=== PATIENT | female | born 1970 | race Caucasian/White ===

== ENCOUNTER 2018-03-09 19:51 | Emergency (ER) | payer MEDICAID ==
[2018-03-09] MEDS: SOD CHLORIDE 0.9% 1,000 ML IV (23:14)
[2018-03-09] MEDS: ONDANSETRON 4 MG INJ IV (23:15)
[2018-03-09] MEDS: morphine 4 MG/ML VIAL IV (23:17)
[2018-03-09 23:23] LABS: ADD MAN DIFF? NO
[2018-03-09 23:30] LABS: WHITE BLOOD COUNT 6.7 10^3/ul (4.8-10.8)
[2018-03-09 23:30] LABS: BASOPHILS % 0.3 % (0.0-2.0); EOSINOPHILS # 0.1 10^3/ul (0.0-0.5); EOSINOPHILS % 1.5 % (0.0-7.0); HEMATOCRIT 50.2 % (37.0-47.0); HEMOGLOBIN 15.8 g/dl (12.0-16.0); LYMPHOCYTES % 29.8 % (15.0-51.0); MEAN CORPUSCULAR HEMOGLOBIN 25.6 pg (29.0-33.0); MEAN CORPUSCULAR HGB CONC 31.5 g/dl (32.0-37.0); MEAN CORPUSCULAR VOLUME 81.4 fl (82.0-101.0); MEAN PLATELET VOLUME 12.1 fl (7.4-10.4); MONOCYTE # 0.6 10^3/ul (0.3-0.9); MONOCYTES % 8.9 % (0.0-11.0); NEUTROPHILS % 59.3 % (39.0-77.0); PLATELET COUNT 233 10^3/UL (140-415); RED BLOOD COUNT 6.17 10^6/ul (4.20-5.40); RED CELL DISTRIBUTION WIDTH 13.4 % (11.5-14.5)
[2018-03-09 23:43] LABS: UR BACTERIA MODERATE /HPF (NONE SEEN); UR MUCUS FEW /HPF (NONE SEEN); UR RBC 6 /HPF (0-5); UR SQUAMOUS EPITHELIAL CELL FEW /HPF (FEW); UR WBC 117 /HPF (0-5)
[2018-03-09 23:51] LABS: ALANINE AMINOTRANSFERASE 157 IU/L (13-69); ALBUMIN/GLOBULIN RATIO 1.02; ALKALINE PHOSPHATASE 139 IU/L (42-121); ANION GAP 15 (8-16); ASPARTATE AMINO TRANSFERASE 84 IU/L (15-46); BILIRUBIN,INDIRECT 0.6 mg/dl (0-1.1); BILIRUBIN,TOTAL 0.6 mg/dl (0.2-1.3); BLOOD UREA NITROGEN 15 mg/dl (7-20); CALCIUM 9.8 mg/dl (8.4-10.2); CARBON DIOXIDE 28 mmol/L (21-31); CHLORIDE 105 mmol/L (97-110); CREATININE 0.83 mg/dl (0.44-1.00); GLUCOSE 94 mg/dl (70-220); LIPASE 142 U/L (23-300); POTASSIUM 3.8 mmol/L (3.5-5.1); SODIUM 144 mmol/L (135-144); TOTAL PROTEIN 7.9 g/dl (6.1-8.1)
[2018-03-10 00:48] LABS: ADD UMIC YES; UR ASCORBIC ACID NEGATIVE (NEGATIVE); UR BILIRUBIN (Dip) NEGATIVE (NEGATIVE); UR BLOOD (Dip) 3+ mg/dL (NEGATIVE); UR CLARITY SLIGHTLY CLOUDY (CLEAR); UR COLOR YELLOW (YELLOW); UR GLUCOSE (Dip) NEGATIVE (NEGATIVE); UR KETONES (Dip) NEGATIVE (NEGATIVE); UR LEUKOCYTE ESTERASE (Dip) 1+ Leu/ul (NEGATIVE); UR NITRITE (Dip) POSITIVE (NEGATIVE); UR SPECIFIC GRAVITY (Dip) 1.021 (1.003-1.030); UR TOTAL PROTEIN (Dip) 2+ mg/dl (NEGATIVE); UR UROBILINOGEN (Dip) NEGATIVE (NEGATIVE)
[2018-03-10] MEDS: CEFTRIAXONE 1 GM/50 ML (PMX) 50 ML IVPB (01:14)
== END 2018-03-10 02:00 | disposition home or self-care (01) ==
LOC: FTE 03-10 02:00
DX: A08.4 Viral intestinal infection, unspecified (principal); N30.01 Acute cystitis with hematuria
CPT/HCPCS: 36415; 74176; 80053; 81001; 81025; 83690; 85025; 96361; 96365; 96375; 99285-25

== ENCOUNTER 2018-07-31 17:12 | Inpatient (IN) | payer MEDICAID ==
[2018-07-31 20:10] LABS: ADD MAN DIFF? NO
[2018-07-31] MEDS: SOD CHLORIDE 0.9% 1,000 ML IV ×2 (20:13→23:43)
[2018-07-31] MEDS: morphine 4 MG/ML VIAL IV (20:13)
[2018-07-31] MEDS: ONDANSETRON 4 MG INJ IV (20:13)
[2018-07-31 20:15] LABS: ADD UMIC YES; INR 0.89; PROTIME 12.2 Sec (11.9-14.9); UR ASCORBIC ACID NEGATIVE (NEGATIVE); UR BILIRUBIN (Dip) NEGATIVE (NEGATIVE); UR BLOOD (Dip) 2+ mg/dL (NEGATIVE); UR CLARITY CLEAR (CLEAR); UR COLOR YELLOW (YELLOW); UR GLUCOSE (Dip) NEGATIVE (NEGATIVE); UR KETONES (Dip) NEGATIVE (NEGATIVE); UR LEUKOCYTE ESTERASE (Dip) NEGATIVE Leu/ul (NEGATIVE); UR NITRITE (Dip) NEGATIVE (NEGATIVE); UR RBC 4 /HPF (0-5); UR SPECIFIC GRAVITY (Dip) 1.018 (1.003-1.030); UR SQUAMOUS EPITHELIAL CELL FEW /HPF (FEW); UR TOTAL PROTEIN (Dip) 2+ mg/dl (NEGATIVE); UR UROBILINOGEN (Dip) NEGATIVE (NEGATIVE); UR WBC 3 /HPF (0-5)
[2018-07-31 20:17] LABS: ALANINE AMINOTRANSFERASE 84 IU/L (13-69); ALBUMIN 4.4 g/dl (3.3-4.9); ALBUMIN/GLOBULIN RATIO 1.15; ALKALINE PHOSPHATASE 144 IU/L (42-121); ANION GAP 12 (5-13); ASPARTATE AMINO TRANSFERASE 54 IU/L (15-46); BILIRUBIN,INDIRECT 0.1 mg/dl (0-1.1); BILIRUBIN,TOTAL 0.1 mg/dl (0.2-1.3); BLOOD UREA NITROGEN 15 mg/dl (7-20); CALCIUM 9.4 mg/dl (8.4-10.2); CARBON DIOXIDE 25 mmol/L (21-31); CHLORIDE 108 mmol/L (97-110); CREATININE 0.78 mg/dl (0.44-1.00); Estimated GFR > 60 mL/min (>60); GLUCOSE 88 mg/dl (70-220); LIPASE 146 U/L (23-300); POTASSIUM 3.1 mmol/L (3.5-5.1); SODIUM 145 mmol/L (135-144); TOTAL PROTEIN 8.2 g/dl (6.1-8.1)
[2018-07-31 20:28] LABS: BASOPHILS % 0.4 % (0.0-2.0); EOSINOPHILS # 0.1 10^3/ul (0.0-0.5); EOSINOPHILS % 1.2 % (0.0-7.0); HEMATOCRIT 47.8 % (37.0-47.0); HEMOGLOBIN 14.8 g/dl (12.0-16.0); LYMPHOCYTES % 20.6 % (15.0-51.0); MEAN CORPUSCULAR HEMOGLOBIN 25.3 pg (29.0-33.0); MEAN CORPUSCULAR VOLUME 81.8 fl (82.0-101.0); MEAN PLATELET VOLUME 12.2 fl (7.4-10.4); MONOCYTE # 0.8 10^3/ul (0.3-0.9); MONOCYTES % 8.7 % (0.0-11.0); NEUTROPHIL # 6.7 10^3/ul (1.6-7.5); NEUTROPHILS % 68.7 % (39.0-77.0); PLATELET COUNT 243 10^3/UL (140-415); RED BLOOD COUNT 5.84 10^6/ul (4.20-5.40); RED CELL DISTRIBUTION WIDTH 13.6 % (11.5-14.5)
[2018-07-31 20:28] LABS: WHITE BLOOD COUNT 9.7 10^3/ul (4.8-10.8)
[2018-07-31] MEDS: POTASSIUM CHLORIDE (SR) 20 MEQ TAB PO (22:39)
[2018-07-31] MEDS ORDERED: ACETAMINOPHEN 325 MG TAB PO (23:30)
[2018-07-31] MEDS ORDERED: ONDANSETRON 4 MG INJ IV (23:30)
[2018-08-01] MEDS ORDERED: DOCUSATE SODIUM 100 MG CAP PO
[2018-08-01] MEDS ORDERED: BISACODYL (EC) 5 MG TAB PO
[2018-08-01] MEDS ORDERED: NACL 0.9% 3 ML SYG IV
[2018-08-01] MEDS: SUCRALFATE 1 GM TAB PO ×5 (00:44→23:03)
[2018-08-01] MEDS: 1/2 NS + KCL 20 MEQ 1,000 ML IV ×4 (01:20→23:03)
[2018-08-01] MEDS: PANTOPRAZOLE 40 MG INJ IV ×2 (06:00→17:13)
[2018-08-01 06:12] LABS: ADD MAN DIFF? NO
[2018-08-01 06:16] LABS: WHITE BLOOD COUNT 6.9 10^3/ul (4.8-10.8)
[2018-08-01 06:16] LABS: BASOPHILS % 0.4 % (0.0-2.0); EOSINOPHILS # 0.2 10^3/ul (0.0-0.5); EOSINOPHILS % 2.2 % (0.0-7.0); HEMATOCRIT 41.6 % (37.0-47.0); HEMOGLOBIN 13.2 g/dl (12.0-16.0); LYMPHOCYTES % 29.6 % (15.0-51.0); MEAN CORPUSCULAR HGB CONC 31.7 g/dl (32.0-37.0); MEAN CORPUSCULAR VOLUME 81.9 fl (82.0-101.0); MEAN PLATELET VOLUME 12.2 fl (7.4-10.4); MONOCYTE # 0.7 10^3/ul (0.3-0.9); NEUTROPHILS % 57.7 % (39.0-77.0); PLATELET COUNT 204 10^3/UL (140-415); RED BLOOD COUNT 5.08 10^6/ul (4.20-5.40); RED CELL DISTRIBUTION WIDTH 13.7 % (11.5-14.5)
[2018-08-01 06:26] LABS: HAAIG REFLEX REFLEX FILED
[2018-08-01 06:35] LABS: HEMOGLOBIN A1C 5.6 % (0-5.9)
[2018-08-01 07:18] LABS: ALANINE AMINOTRANSFERASE 70 IU/L (13-69); ALBUMIN 3.5 g/dl (3.3-4.9); ALBUMIN/GLOBULIN RATIO 1.06; ALKALINE PHOSPHATASE 113 IU/L (42-121); ANION GAP 10 (5-13); ASPARTATE AMINO TRANSFERASE 33 IU/L (15-46); BILIRUBIN,INDIRECT 0.3 mg/dl (0-1.1); BILIRUBIN,TOTAL 0.3 mg/dl (0.2-1.3); BLOOD UREA NITROGEN 13 mg/dl (7-20); CALCIUM 8.5 mg/dl (8.4-10.2); CARBON DIOXIDE 24 mmol/L (21-31); CHLORIDE 109 mmol/L (97-110); CHOL/HDL RATIO 4.9 RATIO; CHOLESTEROL 153 mg/dl (100-200); CREATININE 0.69 mg/dl (0.44-1.00); Estimated GFR > 60 mL/min (>60); GLUCOSE 92 mg/dl (70-220); HDL CHOLESTEROL 31 mg/dl (37-92); LDL CHOLESTEROL,CALCULATED 101 mg/dl; MAGNESIUM 1.8 mg/dl (1.7-2.5); POTASSIUM 3.6 mmol/L (3.5-5.1); SODIUM 143 mmol/L (135-144); TOTAL PROTEIN 6.8 g/dl (6.1-8.1); TRIGLYCERIDES 103 mg/dl (0-149)
[2018-08-01 07:37] LABS: ALPHA FETOPROTEIN 3.49 IU/L (0.00-7.21)
[2018-08-01 07:49] LABS: HEPATITIS B SURFACE ANTIGEN NEGATIVE (NEGATIVE)
[2018-08-01 07:55] LABS: ERYTHROCYTE SEDIMENTATION RATE 13 mm/Hr (0-30)
[2018-08-01 08:07] LABS: HEPATITIS B SURFACE ANTIBODY NEGATIVE (NEGATIVE)
[2018-08-01 08:07] LABS: HEPATITIS B CORE ANTIBODY NEGATIVE (NEGATIVE); HEPATITIS C VIRAL ANTIBODY NEGATIVE (NEGATIVE)
[2018-08-01] MEDS ORDERED: hydrALAzine 20 MG INJ IV (10:30)
[2018-08-01] MEDS: POTASSIUM CHLORIDE (SR) 20 MEQ TAB PO (11:19)
[2018-08-01] MEDS: AMLODIPINE 2.5 MG TAB PO (11:20)
[2018-08-01] MEDS: morphine 2 MG INJ IV (15:03)
[2018-08-01] MEDS: METOCLOPRAMIDE 10 MG INJ IV (17:13)
[2018-08-01] MEDS ORDERED: METOCLOPRAMIDE 10 MG INJ IV (18:30)
[2018-08-01] MEDS ORDERED: ONDANSETRON 4 MG INJ IV (18:30)
[2018-08-01] MEDS ORDERED: MEPERIDINE 25 MG INJ IV (18:30)
[2018-08-01] MEDS ORDERED: FENTAnyl 50 MCG/ML VIAL IV (18:30)
[2018-08-01] MEDS ORDERED: DIPHENHYDRAMINE 50 MG INJ IV (18:30)
[2018-08-01] MEDS: ACETAMINOPHEN 325 MG TAB PO (18:59)
[2018-08-02] MEDS: morphine 2 MG INJ IV (00:34)
[2018-08-02] MEDS: SUCRALFATE 1 GM TAB PO ×4 (05:22→23:28)
[2018-08-02 05:27] LABS: ADD MAN DIFF? NO
[2018-08-02 05:36] LABS: BASOPHILS % 0.7 % (0.0-2.0); EOSINOPHILS # 0.1 10^3/ul (0.0-0.5); EOSINOPHILS % 2.2 % (0.0-7.0); LYMPHOCYTES # 1.7 10^3/ul (0.8-2.9); MEAN CORPUSCULAR HEMOGLOBIN 25.8 pg (29.0-33.0); MEAN CORPUSCULAR VOLUME 83.3 fl (82.0-101.0); MEAN PLATELET VOLUME 12.2 fl (7.4-10.4); MONOCYTE # 0.5 10^3/ul (0.3-0.9); MONOCYTES % 9.3 % (0.0-11.0); NEUTROPHILS % 55.4 % (39.0-77.0); PLATELET COUNT 193 10^3/UL (140-415); RED BLOOD COUNT 5.04 10^6/ul (4.20-5.40); RED CELL DISTRIBUTION WIDTH 13.7 % (11.5-14.5)
[2018-08-02 05:36] LABS: WHITE BLOOD COUNT 5.4 10^3/ul (4.8-10.8)
[2018-08-02 05:56] LABS: ALANINE AMINOTRANSFERASE 66 IU/L (13-69); ALBUMIN 3.4 g/dl (3.3-4.9); ALBUMIN/GLOBULIN RATIO 0.97; ALKALINE PHOSPHATASE 108 IU/L (42-121); ANION GAP 7 (5-13); ASPARTATE AMINO TRANSFERASE 41 IU/L (15-46); BILIRUBIN,INDIRECT 0.4 mg/dl (0-1.1); BILIRUBIN,TOTAL 0.4 mg/dl (0.2-1.3); BLOOD UREA NITROGEN 9 mg/dl (7-20); CARBON DIOXIDE 24 mmol/L (21-31); CHLORIDE 110 mmol/L (97-110); CREATININE 0.62 mg/dl (0.44-1.00); Estimated GFR > 60 mL/min (>60); GLUCOSE 92 mg/dl (70-220); POTASSIUM 3.8 mmol/L (3.5-5.1); SODIUM 141 mmol/L (135-144); TOTAL PROTEIN 6.9 g/dl (6.1-8.1)
[2018-08-02] MEDS: SOD CHLORIDE 0.9% 1,000 ML IV ×2 (05:57→23:29)
[2018-08-02] MEDS: PANTOPRAZOLE 40 MG INJ IV ×2 (05:57→18:53)
[2018-08-02 06:04] LABS: MAGNESIUM 1.8 mg/dl (1.7-2.5)
[2018-08-02] MEDS: AMLODIPINE 2.5 MG TAB PO (09:00)
[2018-08-02] MEDS: METOCLOPRAMIDE 10 MG TAB PO ×2 (16:11→22:30)
[2018-08-02 17:05] LABS: ALPHA 1 ANTITRYPSIN 124 mg/dL (83-199)
[2018-08-02] MEDS: DEXAMETHASONE 1 MG TAB PO (23:28)
[2018-08-03 01:11] LABS: ADD UMIC YES; UR ASCORBIC ACID NEGATIVE (NEGATIVE); UR BILIRUBIN (Dip) NEGATIVE (NEGATIVE); UR BLOOD (Dip) 2+ mg/dL (NEGATIVE); UR CLARITY CLEAR (CLEAR); UR COLOR YELLOW (YELLOW); UR GLUCOSE (Dip) NEGATIVE (NEGATIVE); UR KETONES (Dip) 1+ mg/dL (NEGATIVE); UR LEUKOCYTE ESTERASE (Dip) NEGATIVE Leu/ul (NEGATIVE); UR NITRITE (Dip) NEGATIVE (NEGATIVE); UR RBC 1 /HPF (0-5); UR SQUAMOUS EPITHELIAL CELL FEW /HPF (FEW); UR TOTAL PROTEIN (Dip) 1+ mg/dl (NEGATIVE); UR UROBILINOGEN (Dip) NEGATIVE (NEGATIVE); UR WBC 3 /HPF (0-5)
[2018-08-03 05:09] LABS: ADD MAN DIFF? NO
[2018-08-03 05:18] LABS: WHITE BLOOD COUNT 6.7 10^3/ul (4.8-10.8)
[2018-08-03 05:18] LABS: BASOPHILS % 0.6 % (0.0-2.0); EOSINOPHILS % 0.3 % (0.0-7.0); HEMATOCRIT 45.1 % (37.0-47.0); HEMOGLOBIN 14.1 g/dl (12.0-16.0); LYMPHOCYTES # 0.9 10^3/ul (0.8-2.9); LYMPHOCYTES % 13.5 % (15.0-51.0); MEAN CORPUSCULAR HEMOGLOBIN 25.5 pg (29.0-33.0); MEAN CORPUSCULAR HGB CONC 31.3 g/dl (32.0-37.0); MEAN CORPUSCULAR VOLUME 81.4 fl (82.0-101.0); MEAN PLATELET VOLUME 12.3 fl (7.4-10.4); MONOCYTE # 0.3 10^3/ul (0.3-0.9); MONOCYTES % 4.9 % (0.0-11.0); NEUTROPHIL # 5.4 10^3/ul (1.6-7.5); NEUTROPHILS % 80.4 % (39.0-77.0); PLATELET COUNT 230 10^3/UL (140-415); RED BLOOD COUNT 5.54 10^6/ul (4.20-5.40); RED CELL DISTRIBUTION WIDTH 13.2 % (11.5-14.5)
[2018-08-03 05:45] LABS: ALANINE AMINOTRANSFERASE 66 IU/L (13-69); ALBUMIN/GLOBULIN RATIO 1.11; ALKALINE PHOSPHATASE 121 IU/L (42-121); ANION GAP 13 (5-13); ASPARTATE AMINO TRANSFERASE 43 IU/L (15-46); BILIRUBIN,INDIRECT 0.4 mg/dl (0-1.1); BILIRUBIN,TOTAL 0.4 mg/dl (0.2-1.3); BLOOD UREA NITROGEN 12 mg/dl (7-20); CALCIUM 9.5 mg/dl (8.4-10.2); CARBON DIOXIDE 22 mmol/L (21-31); CHLORIDE 109 mmol/L (97-110); CREATININE 0.63 mg/dl (0.44-1.00); Estimated GFR > 60 mL/min (>60); GLUCOSE 111 mg/dl (70-220); POTASSIUM 3.9 mmol/L (3.5-5.1); SODIUM 144 mmol/L (135-144); TOTAL PROTEIN 7.6 g/dl (6.1-8.1)
[2018-08-03 05:49] LABS: PHOSPHORUS 3.3 mg/dl (2.5-4.9)
[2018-08-03 05:49] LABS: MAGNESIUM 1.9 mg/dl (1.7-2.5)
[2018-08-03] MEDS: SUCRALFATE 1 GM TAB PO ×4 (06:33→23:44)
[2018-08-03] MEDS: PANTOPRAZOLE 40 MG INJ IV ×2 (06:33→18:18)
[2018-08-03] MEDS: METOCLOPRAMIDE 10 MG TAB PO ×3 (06:33→23:44)
[2018-08-03] MEDS: AMLODIPINE 2.5 MG TAB PO (09:40)
[2018-08-03] MEDS: SOD CHLORIDE 0.9% 1,000 ML IV (12:58)
[2018-08-03] MEDS: morphine 2 MG INJ IV (12:59)
[2018-08-03 14:57] LABS: ALDOSTERONE 4 ng/dL
[2018-08-03] MEDS: INDOMETHACIN 50 MG SUPP PR (16:00)
[2018-08-03] MEDS: LIDOCAINE 2% (SDV) 5 ML INJ (19:52)
[2018-08-03] MEDS: PROPOFOL 40 ML (19:52)
[2018-08-04] MEDS: SOD CHLORIDE 0.9% 1,000 ML IV ×3 (01:40→23:20)
[2018-08-04 05:38] LABS: ADD MAN DIFF? NO
[2018-08-04 05:47] LABS: BASOPHILS % 0.6 % (0.0-2.0); EOSINOPHILS # 0.1 10^3/ul (0.0-0.5); EOSINOPHILS % 1.5 % (0.0-7.0); HEMATOCRIT 41.2 % (37.0-47.0); HEMOGLOBIN 13.3 g/dl (12.0-16.0); LYMPHOCYTES # 2.2 10^3/ul (0.8-2.9); LYMPHOCYTES % 33.7 % (15.0-51.0); MEAN CORPUSCULAR HEMOGLOBIN 26.1 pg (29.0-33.0); MEAN CORPUSCULAR HGB CONC 32.3 g/dl (32.0-37.0); MEAN CORPUSCULAR VOLUME 80.8 fl (82.0-101.0); MEAN PLATELET VOLUME 12.1 fl (7.4-10.4); MONOCYTE # 0.5 10^3/ul (0.3-0.9); MONOCYTES % 7.7 % (0.0-11.0); NEUTROPHIL # 3.6 10^3/ul (1.6-7.5); NEUTROPHILS % 56.3 % (39.0-77.0); PLATELET COUNT 210 10^3/UL (140-415); RED CELL DISTRIBUTION WIDTH 13.6 % (11.5-14.5)
[2018-08-04 05:47] LABS: WHITE BLOOD COUNT 6.5 10^3/ul (4.8-10.8)
[2018-08-04] MEDS: SUCRALFATE 1 GM TAB PO ×3 (06:02→17:25)
[2018-08-04] MEDS: METOCLOPRAMIDE 10 MG TAB PO ×3 (06:02→21:13)
[2018-08-04] MEDS: PANTOPRAZOLE 40 MG INJ IV ×2 (06:02→17:22)
[2018-08-04 06:11] LABS: MAGNESIUM 1.8 mg/dl (1.7-2.5)
[2018-08-04 06:11] LABS: PHOSPHORUS 2.9 mg/dl (2.5-4.9)
[2018-08-04 06:32] LABS: ALANINE AMINOTRANSFERASE 71 IU/L (13-69); ALBUMIN 3.5 g/dl (3.3-4.9); ALBUMIN/GLOBULIN RATIO 1.02; ALKALINE PHOSPHATASE 107 IU/L (42-121); ANION GAP 11 (5-13); ASPARTATE AMINO TRANSFERASE 41 IU/L (15-46); BILIRUBIN,INDIRECT 0.4 mg/dl (0-1.1); BILIRUBIN,TOTAL 0.4 mg/dl (0.2-1.3); BLOOD UREA NITROGEN 10 mg/dl (7-20); CALCIUM 8.9 mg/dl (8.4-10.2); CARBON DIOXIDE 24 mmol/L (21-31); CHLORIDE 109 mmol/L (97-110); CREATININE 0.68 mg/dl (0.44-1.00); Estimated GFR > 60 mL/min (>60); GLUCOSE 92 mg/dl (70-220); POTASSIUM 3.3 mmol/L (3.5-5.1); SODIUM 144 mmol/L (135-144); TOTAL PROTEIN 6.9 g/dl (6.1-8.1)
[2018-08-04] MEDS: AMLODIPINE 2.5 MG TAB PO (08:32)
[2018-08-04] MEDS: morphine 2 MG INJ IV ×2 (14:40→23:20)
[2018-08-04] MEDS: POTASSIUM CHLORIDE 100 ML IVPB ×2 (14:41→16:30)
[2018-08-04] MEDS ORDERED: SUCCINYLCHOLINE CHLORIDE 100 MG/5 ML SYG IV (17:40)
[2018-08-04] MEDS ORDERED: PROPOFOL 20 ML ×2 (17:40→18:10)
[2018-08-04] MEDS ORDERED: IOHEXOL 300MG/ML 30 ML BTL (17:52)
[2018-08-04] MEDS ORDERED: DIPHENHYDRAMINE 50 MG INJ IV (18:00)
[2018-08-04] MEDS ORDERED: MEPERIDINE 25 MG INJ IV (18:00)
[2018-08-04] MEDS ORDERED: LABETALOL HCL 20MG INJ IV (18:00)
[2018-08-04] MEDS ORDERED: hydrALAzine 20 MG INJ IV (18:00)
[2018-08-04] MEDS ORDERED: HYDROmorphONE 1 MG/5 ML IV SYRINGE IV (18:00)
[2018-08-04] MEDS ORDERED: METOCLOPRAMIDE 10 MG INJ (18:09)
[2018-08-04] MEDS ORDERED: FENTAnyl 50 MCG/ML VIAL (18:09)
[2018-08-04] MEDS ORDERED: ONDANSETRON 4 MG INJ (18:09)
[2018-08-04] MEDS: HYDROmorphONE 1 MG/5 ML IV SYRINGE IV ×2 (18:50→18:57)
[2018-08-04] MEDS: ONDANSETRON 4 MG INJ IV (18:51)
[2018-08-04] MEDS: POTASSIUM CHLORIDE 20 MEQ POWDER FOR ORAL SOLN PO (21:14)
[2018-08-05] MEDS: SUCRALFATE 1 GM TAB PO ×4 (00:49→17:53)
[2018-08-05] MEDS: ACETAMINOPHEN 325 MG TAB PO ×3 (00:50→20:56)
[2018-08-05 05:28] LABS: ADD MAN DIFF? NO
[2018-08-05 05:33] LABS: BASOPHILS % 0.3 % (0.0-2.0); EOSINOPHILS # 0.1 10^3/ul (0.0-0.5); EOSINOPHILS % 0.5 % (0.0-7.0); HEMATOCRIT 42.8 % (37.0-47.0); HEMOGLOBIN 13.5 g/dl (12.0-16.0); LYMPHOCYTES # 0.9 10^3/ul (0.8-2.9); LYMPHOCYTES % 8.4 % (15.0-51.0); MEAN CORPUSCULAR HEMOGLOBIN 25.5 pg (29.0-33.0); MEAN CORPUSCULAR HGB CONC 31.5 g/dl (32.0-37.0); MEAN CORPUSCULAR VOLUME 80.8 fl (82.0-101.0); MEAN PLATELET VOLUME 12.5 fl (7.4-10.4); MONOCYTE # 0.6 10^3/ul (0.3-0.9); MONOCYTES % 5.7 % (0.0-11.0); NEUTROPHIL # 9.1 10^3/ul (1.6-7.5); NEUTROPHILS % 84.7 % (39.0-77.0); PLATELET COUNT 243 10^3/UL (140-415); RED CELL DISTRIBUTION WIDTH 13.4 % (11.5-14.5)
[2018-08-05 05:33] LABS: WHITE BLOOD COUNT 10.8 10^3/ul (4.8-10.8)
[2018-08-05 06:05] LABS: ALANINE AMINOTRANSFERASE 146 IU/L (13-69); ALBUMIN 3.8 g/dl (3.3-4.9); ALBUMIN/GLOBULIN RATIO 1.15; ALKALINE PHOSPHATASE 119 IU/L (42-121); ANION GAP 10 (5-13); ASPARTATE AMINO TRANSFERASE 159 IU/L (15-46); BILIRUBIN,INDIRECT 0.5 mg/dl (0-1.1); BILIRUBIN,TOTAL 0.5 mg/dl (0.2-1.3); BLOOD UREA NITROGEN 9 mg/dl (7-20); CARBON DIOXIDE 26 mmol/L (21-31); CHLORIDE 107 mmol/L (97-110); CREATININE 0.67 mg/dl (0.44-1.00); Estimated GFR > 60 mL/min (>60); GLUCOSE 115 mg/dl (70-220); POTASSIUM 3.8 mmol/L (3.5-5.1); SODIUM 143 mmol/L (135-144); TOTAL PROTEIN 7.1 g/dl (6.1-8.1)
[2018-08-05 06:08] LABS: MAGNESIUM 1.6 mg/dl (1.7-2.5)
[2018-08-05 06:08] LABS: PHOSPHORUS 3.5 mg/dl (2.5-4.9)
[2018-08-05] MEDS: PANTOPRAZOLE 40 MG INJ IV (06:11)
[2018-08-05] MEDS: METOCLOPRAMIDE 10 MG TAB PO ×3 (06:12→20:45)
[2018-08-05 08:37] LABS: RENIN, PLASMA 0.77 ng/mL/h (0.25-5.82)
[2018-08-05] MEDS: ONDANSETRON 4 MG INJ IV (08:38)
[2018-08-05] MEDS: AMLODIPINE 2.5 MG TAB PO (08:39)
[2018-08-05] MEDS: POTASSIUM CHLORIDE 20 MEQ POWDER FOR ORAL SOLN PO ×2 (08:39→20:45)
[2018-08-05] MEDS: SOD CHLORIDE 0.9% 1,000 ML IV (12:20)
[2018-08-05] MEDS: PANTOPRAZOLE (EC) 40 MG TAB PO (17:53)
[2018-08-05 19:32] LABS: RENIN, PLASMA 0.27 ng/mL/h (0.25-5.82)
[2018-08-05] MEDS: MAGNESIUM SULFATE 3 GM in DEXTROSE 5% 100 ML IVPB (20:45)
[2018-08-06] MEDS: ACETAMINOPHEN 325 MG TAB PO (03:43)
[2018-08-06 05:11] LABS: ADD MAN DIFF? NO
[2018-08-06 05:22] LABS: WHITE BLOOD COUNT 5.8 10^3/ul (4.8-10.8)
[2018-08-06 05:22] LABS: BASOPHILS % 0.5 % (0.0-2.0); EOSINOPHILS # 0.1 10^3/ul (0.0-0.5); HEMATOCRIT 41.9 % (37.0-47.0); HEMOGLOBIN 13.4 g/dl (12.0-16.0); LYMPHOCYTES # 0.9 10^3/ul (0.8-2.9); LYMPHOCYTES % 16.2 % (15.0-51.0); MEAN CORPUSCULAR HEMOGLOBIN 25.5 pg (29.0-33.0); MEAN CORPUSCULAR VOLUME 79.8 fl (82.0-101.0); MEAN PLATELET VOLUME 12.2 fl (7.4-10.4); MONOCYTE # 0.4 10^3/ul (0.3-0.9); MONOCYTES % 6.6 % (0.0-11.0); NEUTROPHIL # 4.4 10^3/ul (1.6-7.5); NEUTROPHILS % 75.4 % (39.0-77.0); PLATELET COUNT 202 10^3/UL (140-415); RED BLOOD COUNT 5.25 10^6/ul (4.20-5.40); RED CELL DISTRIBUTION WIDTH 13.6 % (11.5-14.5)
[2018-08-06 05:48] LABS: AMYLASE 55 U/L (11-123)
[2018-08-06 05:48] LABS: LIPASE 394 U/L (23-300)
[2018-08-06 05:51] LABS: ALANINE AMINOTRANSFERASE 351 IU/L (13-69); ALBUMIN 3.5 g/dl (3.3-4.9); ALBUMIN/GLOBULIN RATIO 1.12; ALKALINE PHOSPHATASE 148 IU/L (42-121); ANION GAP 8 (5-13); ASPARTATE AMINO TRANSFERASE 272 IU/L (15-46); BILIRUBIN,INDIRECT 0.4 mg/dl (0-1.1); BILIRUBIN,TOTAL 0.4 mg/dl (0.2-1.3); BLOOD UREA NITROGEN 7 mg/dl (7-20); CALCIUM 8.9 mg/dl (8.4-10.2); CARBON DIOXIDE 26 mmol/L (21-31); CHLORIDE 109 mmol/L (97-110); Estimated GFR > 60 mL/min (>60); GLUCOSE 116 mg/dl (70-220); POTASSIUM 3.7 mmol/L (3.5-5.1); SODIUM 143 mmol/L (135-144); TOTAL PROTEIN 6.6 g/dl (6.1-8.1)
[2018-08-06 05:53] LABS: MAGNESIUM 2.3 mg/dl (1.7-2.5)
[2018-08-06 05:53] LABS: PHOSPHORUS 2.9 mg/dl (2.5-4.9)
[2018-08-06] MEDS: PANTOPRAZOLE (EC) 40 MG TAB PO ×2 (06:53→18:00)
[2018-08-06] MEDS: METOCLOPRAMIDE 10 MG TAB PO ×3 (06:53→21:24)
[2018-08-06] MEDS: SUCRALFATE 1 GM TAB PO ×4 (06:53→18:00)
[2018-08-06] MEDS: AMLODIPINE 2.5 MG TAB PO (08:26)
[2018-08-06] MEDS: POTASSIUM CHLORIDE 20 MEQ POWDER FOR ORAL SOLN PO ×2 (08:27→21:00)
[2018-08-06 12:32] LABS: ALDOSTERONE 3 ng/dL
[2018-08-06] MEDS: morphine 2 MG INJ IV (17:00)
[2018-08-06] MEDS: ARTIFICIAL TEARS 15 ML OPH BOTH EYES ×2 (18:30→21:00)
[2018-08-06] MEDS: DEXTROSE 5%-0.45% NACL 1,000 ML IV (18:43)
[2018-08-06] MEDS ORDERED: ROCURONIUM 50 MG INJ ×2 (20:38→22:03)
[2018-08-06] MEDS ORDERED: ROPIVACAINE 0.5 % 30 ML VIAL ×2 (20:38→22:03)
[2018-08-06] MEDS ORDERED: FENTAnyl 50 MCG/ML VIAL (20:38)
[2018-08-06] MEDS ORDERED: PROPOFOL 0 ML (20:38)
[2018-08-06] MEDS ORDERED: MIDAZOLAM 1 MG/ML 2 ML INJ ×2 (20:38→22:03)
[2018-08-06] MEDS: ACETAMINOPHEN 1000MG/100ML IV 100 ML IVPB (21:18)
[2018-08-06] MEDS ORDERED: PROPOFOL 20 ML (22:03)
[2018-08-06] MEDS ORDERED: MEPERIDINE 25 MG INJ IV (23:30)
[2018-08-06] MEDS ORDERED: LABETALOL HCL 20MG INJ IV (23:30)
[2018-08-06] MEDS ORDERED: HYDROmorphONE 1 MG/5 ML IV SYRINGE IV ×3 (23:30)
[2018-08-06] MEDS ORDERED: DIPHENHYDRAMINE 50 MG INJ IV (23:30)
[2018-08-06] MEDS ORDERED: hydrALAzine 20 MG INJ IV (23:30)
[2018-08-06] MEDS ORDERED: EPHEDrine SULFATE 50 MG/5 ML SYG IV (23:30)
[2018-08-06] MEDS ORDERED: FENTAnyl 50 MCG/ML VIAL IV ×3 (23:30)
[2018-08-06] MEDS ORDERED: ONDANSETRON 4 MG INJ IV (23:30)
[2018-08-06] MEDS ORDERED: METOCLOPRAMIDE 10 MG INJ IV (23:30)
[2018-08-06] MEDS ORDERED: CEFAZOLIN 1 GM INJ (23:32)
[2018-08-06] MEDS ORDERED: HETASTARCH 6% NACL 500 ML (23:33)
[2018-08-06] MEDS: BUPIVACAINE 0.5%/EPI (SDV) 30 ML INJ (23:50)
[2018-08-06] MEDS: LIDOCAINE 2% (MDV) 20 ML INJ (23:51)
[2018-08-07] MEDS ORDERED: DESFLURANE 15 MIN
[2018-08-07] MEDS ORDERED: KETOROLAC 30 MG INJ (00:01)
[2018-08-07] MEDS ORDERED: DEXAMETHASONE 4 MG/ML 5 ML INJ (00:01)
[2018-08-07] MEDS ORDERED: METOCLOPRAMIDE 10 MG INJ (00:01)
[2018-08-07] MEDS ORDERED: ONDANSETRON 4 MG INJ (00:01)
[2018-08-07] MEDS ORDERED: SUGAMMADEX SODIUM 200 MG/2 ML VIAL IV (00:01)
[2018-08-07] MEDS ORDERED: HYDROCODONE/APAP (5/325) TAB PO (01:30)
[2018-08-07] MEDS ORDERED: ACETAMINOPHEN 325 MG TAB PO (01:30)
[2018-08-07] MEDS ORDERED: HYDROmorphONE 0.5 MG/0.5 ML SYG IV (01:30)
[2018-08-07] MEDS ORDERED: ONDANSETRON 4 MG INJ IV ×2 (01:30→18:30)
[2018-08-07] MEDS: D5W-0.45 NACL + KCL 20 MEQ 1,000 ML IV ×3 (02:03→13:08)
[2018-08-07] MEDS: METOCLOPRAMIDE 10 MG TAB PO ×3 (06:11→21:40)
[2018-08-07] MEDS: PANTOPRAZOLE (EC) 40 MG TAB PO ×2 (06:11→17:46)
[2018-08-07] MEDS: SUCRALFATE 1 GM TAB PO ×5 (06:11→23:54)
[2018-08-07] MEDS: ENOXAPARIN 40 MG/0.4 ML SYG SC (06:16)
[2018-08-07 06:18] LABS: ADD MAN DIFF? NO
[2018-08-07 06:34] LABS: WHITE BLOOD COUNT 6.9 10^3/ul (4.8-10.8)
[2018-08-07 06:34] LABS: ABNORMAL IP MESSAGE 1; BASOPHILS % 0.3 % (0.0-2.0); HEMATOCRIT 43.4 % (37.0-47.0); HEMOGLOBIN 13.9 g/dl (12.0-16.0); LYMPHOCYTES # 0.5 10^3/ul (0.8-2.9); LYMPHOCYTES % 7.6 % (15.0-51.0); MEAN CORPUSCULAR HEMOGLOBIN 25.8 pg (29.0-33.0); MEAN CORPUSCULAR VOLUME 80.7 fl (82.0-101.0); MEAN PLATELET VOLUME 12.9 fl (7.4-10.4); MONOCYTE # 0.2 10^3/ul (0.3-0.9); MONOCYTES % 2.6 % (0.0-11.0); NEUTROPHIL # 6.2 10^3/ul (1.6-7.5); NEUTROPHILS % 88.9 % (39.0-77.0); PLATELET COUNT 203 10^3/UL (140-415); RED BLOOD COUNT 5.38 10^6/ul (4.20-5.40); RED CELL DISTRIBUTION WIDTH 14.1 % (11.5-14.5)
[2018-08-07 06:38] LABS: INR 0.91; PROTIME 12.4 Sec (11.9-14.9)
[2018-08-07 06:41] LABS: POSITIVE DIFF @See below
[2018-08-07 06:51] LABS: ALANINE AMINOTRANSFERASE 285 IU/L (13-69); ALBUMIN 3.5 g/dl (3.3-4.9); ALBUMIN/GLOBULIN RATIO 1.06; ALKALINE PHOSPHATASE 167 IU/L (42-121); ANION GAP 9 (5-13); ASPARTATE AMINO TRANSFERASE 135 IU/L (15-46); BILIRUBIN,INDIRECT 0.1 mg/dl (0-1.1); BILIRUBIN,TOTAL 0.1 mg/dl (0.2-1.3); BLOOD UREA NITROGEN 12 mg/dl (7-20); CALCIUM 8.8 mg/dl (8.4-10.2); CARBON DIOXIDE 25 mmol/L (21-31); CHLORIDE 108 mmol/L (97-110); CREATININE 0.84 mg/dl (0.44-1.00); Estimated GFR > 60 mL/min (>60); GLUCOSE 192 mg/dl (70-220); POTASSIUM 3.9 mmol/L (3.5-5.1); SODIUM 142 mmol/L (135-144); TOTAL PROTEIN 6.8 g/dl (6.1-8.1)
[2018-08-07] MEDS: ARTIFICIAL TEARS 15 ML OPH BOTH EYES ×4 (08:43→21:00)
[2018-08-07] MEDS: POTASSIUM CHLORIDE 20 MEQ POWDER FOR ORAL SOLN PO ×2 (08:43→21:40)
[2018-08-07] MEDS: AMLODIPINE 2.5 MG TAB PO (08:43)
[2018-08-07] MEDS: DEXTROSE 5%-0.45% NACL 1,000 ML IV (14:30)
[2018-08-08] MEDS: D5W-0.45 NACL + KCL 20 MEQ 1,000 ML IV (04:18)
[2018-08-08 05:23] LABS: ADD MAN DIFF? NO
[2018-08-08 05:26] LABS: BASOPHILS % 0.3 % (0.0-2.0); EOSINOPHILS % 0.2 % (0.0-7.0); HEMATOCRIT 44.7 % (37.0-47.0); LYMPHOCYTES # 1.6 10^3/ul (0.8-2.9); LYMPHOCYTES % 17.5 % (15.0-51.0); MEAN CORPUSCULAR HEMOGLOBIN 25.4 pg (29.0-33.0); MEAN CORPUSCULAR HGB CONC 31.3 g/dl (32.0-37.0); MEAN CORPUSCULAR VOLUME 81.1 fl (82.0-101.0); MEAN PLATELET VOLUME 12.7 fl (7.4-10.4); MONOCYTE # 0.9 10^3/ul (0.3-0.9); NEUTROPHIL # 6.4 10^3/ul (1.6-7.5); NEUTROPHILS % 71.6 % (39.0-77.0); PLATELET COUNT 218 10^3/UL (140-415); RED BLOOD COUNT 5.51 10^6/ul (4.20-5.40); RED CELL DISTRIBUTION WIDTH 14.1 % (11.5-14.5)
[2018-08-08 05:26] LABS: WHITE BLOOD COUNT 8.9 10^3/ul (4.8-10.8)
[2018-08-08 05:55] LABS: ALANINE AMINOTRANSFERASE 183 IU/L (13-69); ALBUMIN 3.5 g/dl (3.3-4.9); ALBUMIN/GLOBULIN RATIO 1.02; ALKALINE PHOSPHATASE 162 IU/L (42-121); ANION GAP 8 (5-13); ASPARTATE AMINO TRANSFERASE 67 IU/L (15-46); BLOOD UREA NITROGEN 12 mg/dl (7-20); CALCIUM 9.1 mg/dl (8.4-10.2); CARBON DIOXIDE 25 mmol/L (21-31); CHLORIDE 110 mmol/L (97-110); CREATININE 0.78 mg/dl (0.44-1.00); Estimated GFR > 60 mL/min (>60); GLUCOSE 121 mg/dl (70-220); POTASSIUM 4.4 mmol/L (3.5-5.1); SODIUM 143 mmol/L (135-144); TOTAL PROTEIN 6.9 g/dl (6.1-8.1)
[2018-08-08 05:56] LABS: PHOSPHORUS 2.6 mg/dl (2.5-4.9)
[2018-08-08 05:56] LABS: MAGNESIUM 1.7 mg/dl (1.7-2.5)
[2018-08-08] MEDS: SUCRALFATE 1 GM TAB PO ×2 (06:07→12:24)
[2018-08-08] MEDS: METOCLOPRAMIDE 10 MG TAB PO ×2 (06:07→13:56)
[2018-08-08] MEDS: PANTOPRAZOLE (EC) 40 MG TAB PO (06:07)
[2018-08-08] MEDS: ENOXAPARIN 40 MG/0.4 ML SYG SC (06:10)
[2018-08-08] MEDS: POTASSIUM CHLORIDE 20 MEQ POWDER FOR ORAL SOLN PO (08:36)
[2018-08-08] MEDS: AMLODIPINE 2.5 MG TAB PO (08:37)
[2018-08-08] MEDS: ARTIFICIAL TEARS 15 ML OPH BOTH EYES ×2 (08:58→13:00)
[2018-08-08] MEDS: DEXTROSE 5%-0.45% NACL 1,000 ML IV (10:30)
== END 2018-08-08 16:50 | disposition home or self-care (01) | DRG 357 ==
LOC: MS1 23:16 → E/R 17:12 → MS1 08-07 23:31
PROC: 0DB68ZX Excision of Stomach, Via Natural or Artificial Opening Endoscopic, Diagnostic (ICD-10-PCS; principal; 2018-08-01 17:28)
PROC: 0FT44ZZ Resection of Gallbladder, Percutaneous Endoscopic Approach (ICD-10-PCS; 2018-08-01 17:28)
PROC: 0FC98ZZ Extirpation of Matter from Common Bile Duct, Via Natural or Artificial Opening Endoscopic (ICD-10-PCS; 2018-08-01 17:28)
DX: K29.71 Gastritis, unspecified, with bleeding (principal); K80.64 Calculus of gallbladder and bile duct with chronic cholecystitis without obstruction; E87.0 Hyperosmolality and hypernatremia; K92.1 Melena; D35.01 Benign neoplasm of right adrenal gland; E87.6 Hypokalemia; I10 Essential (primary) hypertension; E66.01 Morbid (severe) obesity due to excess calories; E78.5 Hyperlipidemia, unspecified; K20.9 Esophagitis, unspecified; K76.89 Other specified diseases of liver; E88.81 Metabolic syndrome and other insulin resistance; Z68.39 Body mass index [BMI] 39.0-39.9, adult
CPT/HCPCS: 36415; 71045; 74176; 74181; 74330; 76700; 80053; 80061; 81001; 81003; 81025; 82088; 82103; 82105; 82150; 82384; 82533; 83036; 83690; 83735; 83835; 84100; 84244; 84443; 85025; 85610; 85651; 85730; 86704; 86706; 86708; 86709; 86803; 86850; 86900; 86901; 87086; 87340; 88304; 88305; 88312; 90686; 93005; 96374; 96375; 99285-25